=== PATIENT | male | born 1960 | race Caucasian/White ===

== ENCOUNTER → 2024-04-27 | Outpatient (CLI) | payer OTHER ==
--- NOTE | 2024-04-27 09:19 | US ---
EXAMINATION TYPE: US prostate transrectal DATE OF EXAM: 04/27/2024 COMPARISON: NONE CLINICAL INDICATION: Male, 63 years old with history of R97.20 Elevated PSA; elevated PSA TECHNIQUE: Grayscale and color Doppler imaging of the prostate gland. This examination was performed using the transrectal probe. EXAM MEASUREMENTS: Gland Size: 5.6 x 5.1 x 3.4cm Volume: 50.0 Predicted PSA: 6.0 Actual PSA (if available):4.97 on 03/30/24 IMPRESSION: 1. No suspicious masses visualized. 2. Note that prostate MRI is a more sensitive exam for the detection of clinically significant prost ate adenocarcinoma. Predicted PSA = volume x 0.12 ng/ml Calculated Volume = 0.5236 x L x W x H [facility], , 04/27/2024 9:17 AM
== END | disposition home or self-care (01) ==
LOC: RADUSWWP 07:53
PROVIDERS: ATTEND Family Medicine
DX: R97.20 Elevated prostate specific antigen [PSA] (principal)
CPT/HCPCS: 76872

== ENCOUNTER → 2024-06-19 | Outpatient (CLI) | payer OTHER ==
--- NOTE | 2024-06-19 08:29 | MR ---
EXAMINATION TYPE: MR Prostate wo/w con DATE OF EXAM: 06/19/2024 COMPARISON: Prostate ultrasound April 27, 2024 INDICATION: Elevated PSA PSA: 5.25 ng/ml on April 2024 Recent Biopsy and Date: None Pathology Report (If Applicable): n/a TECHNIQUE: Examination was performed using a 3T MRI without an endorectal coil. Multiparametric imaging was perf ormed with T2 mutliplanar sequences, axial diffusion weighted imaging and dynamic contrast enhanced i maging, utilizing 9 mL intravenous Gadobutrol gadolinium contrast. FINDINGS: PROSTATE VOLUME: 5.2 cm SI x 3.1 cm AP x 4.6 cm LR Vol= 38.8 cc PSA DENSITY: 0.14 ng/ml/cc Slightly enlarged prostate gland is present bulging of bladder base. Left peripheral zone shows some area of slightly diminished linear signal on ADC mapping. No areas of marked diminished signal are id entified. No suspicious T2 hypointense areas in the central transitional zone. No areas of marked inc reased signal on diffusion-weighted imaging. Urinary bladder is within normal limits. There are small fat-containing bilateral inguinal hernias id entified. No destructive osseous lesions are seen. Sigmoid colonic diverticulosis is present. IMPRESSION: Slightly enlarged prostate consistent with BPH correlates with most recent ultrasound. A focus of clinically significant cancer is not identified. Highest Assessment Category: 2 MRI Stage: T0 N0 M0 based on review of pelvic images. False negative rates for MRI range from 5-20% depending on risk profile. Assessment Categories: 1 ? Very low (clinically significant cancer is highly unlikely to be present) 2 ? Low (clinically significant cancer is unlikely to be present) 3 ? Intermediate (the presence of clinically significant cancer is equivocal) 4 ? High (clinically significant cancer is likely to be present) 5 ? Very high (clinically significant cancer is highly likely to be present) [facility], , 06/19/2024 8:26 AM
== END | disposition home or self-care (01) ==
LOC: RADMRIMAIN 07:02
PROVIDERS: ATTEND Urology
DX: N40.0 Benign prostatic hyperplasia without lower urinary tract symptoms (principal); R97.20 Elevated prostate specific antigen [PSA]; K57.30 Diverticulosis of large intestine without perforation or abscess without bleeding; K40.20 Bilateral inguinal hernia, without obstruction or gangrene, not specified as recurrent
CPT/HCPCS: 72197; A9585